=== PATIENT | male | born 1945 | race Caucasian/White ===

== ENCOUNTER 2018-10-03 14:53 | Emergency (ER) | payer MEDICARE ==
[~2018-10-03] VITALS: Ht 177.8 cm; Wt 70.0 kg
[~2018-10-03 14:53] MED LIST: ATOR40TA78 PO; GLIM2TAB2 PO; HYDR-3240 PO; LISI-167 PO; METF10002 PO; PIOG45TA4 PO; ZOLP10TA PO
[2018-10-03] MEDS ORDERED: HYDROmorphone 2 MG/ML, 1ML ONE (15:11)
[2018-10-03] MEDS ORDERED: HYDROmorphone 1 MG/ML, 1ML IVPush PRN (15:30)
[2018-10-03] MEDS ORDERED: TAMS0.4C2 PO (15:39)
[2018-10-03] MEDS ORDERED: multivitamin PO (15:39)
[2018-10-03] MEDS ORDERED: KETOROLAC 30 MG/1 ML ONE (15:58)
[2018-10-03] MEDS ORDERED: KETOROLAC 30 MG/1 ML IVPush ONE (16:00)
[2018-10-03] MEDS ORDERED: OXYcodone/APAP 10/325MG TABLET ONE (17:27)
[2018-10-03] MEDS ORDERED: OXYcodone/APAP 10/325MG TABLET PO ONE (17:30)
[2018-10-03 18:16] VITALS: BP 137/75
== END 2018-10-03 18:18 | disposition home or self-care (01) ==
LOC: ED 17:52
DX: S20.01XA Contusion of right breast, initial encounter (principal); S20.221A Contusion of right back wall of thorax, initial encounter; E78.00 Pure hypercholesterolemia, unspecified; I10 Essential (primary) hypertension; E11.9 Type 2 diabetes mellitus without complications; W11.XXXA Fall on and from ladder, initial encounter; Y93.89 Activity, other specified; Y92.89 Other specified places as the place of occurrence of the external cause; Y99.8 Other external cause status
CPT/HCPCS: 71250; 96374; 96375; 99284; J1170; J1885

== ENCOUNTER → 2020-03-29 | Outpatient (CLI) | payer MEDICARE ==
[~2020-03-29] MED LIST changes: +AMOX500T PO; +AZIT250T89 PO; +FINA5TAB4 PO; -GLIM2TAB2 PO; +GLIM2TAB7 PO; +OMNIPAQUE 350 MG/ML, 100ML BOTTLE ONE; -PIOG45TA4 PO; +PIOG45TA63 PO; +PRED20TA PO; +TAMS0.4C2 PO; +multivitamin PO
== END | disposition home or self-care (01) ==
LOC: CFH 12:41 → EDSTATUS 13:30
PROVIDERS: ATTEND Surgery
DX: K80.20 Calculus of gallbladder without cholecystitis without obstruction (principal); I71.4 Abdominal aortic aneurysm, without rupture; I70.201 Unspecified atherosclerosis of native arteries of extremities, right leg
CPT/HCPCS: 74174; 82565; Q9967

== ENCOUNTER 2020-04-08 10:56 | Emergency (ER) | payer MEDICARE ==
[~2020-04-08] VITALS: Ht 177.8 cm; Wt 74.0 kg
[~2020-04-08 10:56] MED LIST changes: -OMNIPAQUE 350 MG/ML, 100ML BOTTLE ONE
--- NOTE | 2020-04-08 11:10 | NUR ---
PT BIB [facility] WITH C/O LLQ ABD PAIN BEGINNING 729 THIS AM. PT DENIES N/V/D. NOTED REBOUND TENDERNESS. PT WITH HX AAA REPAIR A COUPLE YEARS AGO. PT DENIES CP/SOB/FEVER. PT TO CARD MONITOR, BP, CONT PULSE OX. PIV ESTABLISHED PT TO GO TO CT
[2020-04-08] MEDS ORDERED: MORPHINE SULFATE 4 MG/ML, 1ML ONE (11:25)
[2020-04-08] MEDS ORDERED: ONDANSETRON 2MG/ML, 2ML ONE (11:25)
--- NOTE | 2020-04-08 11:29 | NUR ---
PT TO CT AT THIS TIME
[2020-04-08] MEDS ORDERED: ONDANSETRON 2MG/ML, 2ML IVPush ONE (11:30)
[2020-04-08] MEDS ORDERED: PLEASE ENTER HEIGHT AND WEIGHT MC SCH (11:30)
[2020-04-08] MEDS ORDERED: SODIUM CHLORIDE 0.9% 1,000ML IVBOLUS ONE (11:30)
[2020-04-08] MEDS ORDERED: SODIUM CHLORIDE FLUSH 10ML SYR IVF ONE (11:30)
[2020-04-08] MEDS ORDERED: MORPHINE SULFATE 4 MG/ML, 1ML IVPush PRN (11:30)
--- NOTE | 2020-04-08 11:32 | NUR ---
PT STATES PAIN RELEIF NOW 10 FROM 07/22 IT WAS ON ARRIVAL, PT DECLINES MORPHINE AT THIS TIME, BP STABLE
[2020-04-08] MEDS ORDERED: OMNIPAQUE 350 MG/ML, 100ML BOTTLE ONE (11:44)
[2020-04-08 11:51] LABS: BASOPHILS # (AUTO) 0.02 x10^3/uL (0-0.1); BASOPHILS % (AUTO) 0 % (0-1); EOSINOPHILS # (AUTO) 0.02 x10^3/uL (0-0.4); EOSINOPHILS % (AUTO) 0 % (1-7); LYMPHOCYTES % (AUTO) 6 % (22-44); MD NO; MEAN CORPUSCULAR HEMOGLOBIN 32.3 pg (27.5-34.5); MEAN CORPUSCULAR HGB CONC 33.7 g/dL (33.2-36.2); MEAN CORPUSCULAR VOLUME 96.1 fL (81-97); MEAN PLATELET VOLUME 7.2 fL (7.4-10.4); MONOCYTES # (AUTO) 0.31 x10^3/uL (0.2-0.8); MONOCYTES % (AUTO) 4 % (2-9); NEUTROPHILS # (AUTO) 6.35 x10^3/uL (1.8-6.8); NEUTROPHILS % (AUTO) 89 % (42-75); PLATELET COUNT 192 x10^3/uL (130-400); RED BLOOD COUNT 4.11 x10^6/uL (4.38-5.82); RED CELL DISTRIBUTION WIDTH 13.9 % (9.4-14.8)
[2020-04-08 11:59] LABS: INTERNATIONAL NORMALIZED RATIO 1.1 (0.93-1.1); PROTHROMBIN TIME 11.7 Seconds (9.6-11.5)
[2020-04-08 12:01] LABS: ALANINE AMINOTRANSFERASE 23 U/L (12-78); ALBUMIN 2.7 g/dL (3.4-5.0); ANION GAP 6 mmol/L (5-15); CALCIUM 7.9 mg/dL (8.5-10.1); CHLORIDE 112 mmol/L (98-107); CREATININE 1.09 mg/dL (0.7-1.3)
[2020-04-08 12:05] LABS: ALKALINE PHOSPHATASE 35 U/L (45-117); BILIRUBIN,TOTAL 0.4 mg/dL (0.2-1.0); TOTAL PROTEIN 6.8 g/dL (6.4-8.2)
[2020-04-08 12:37] VITALS: BP 131/60
--- NOTE | 2020-04-08 12:38 | NUR ---
PT UNABLE TO URINATE, 2ND ATTEMPT. OK TO GIVE WATER PER ERMD
[2020-04-08 13:21] LABS: MICROSCOPIC AUTO
== END 2020-04-08 14:06 | disposition home or self-care (01) ==
LOC: ED 13:14
DX: N13.2 Hydronephrosis with renal and ureteral calculous obstruction (principal); R94.31 Abnormal electrocardiogram [ECG] [EKG]; I10 Essential (primary) hypertension; E78.5 Hyperlipidemia, unspecified; E78.00 Pure hypercholesterolemia, unspecified; E11.9 Type 2 diabetes mellitus without complications
CPT/HCPCS: 36415; 74175; 80053; 81001; 83605; 83690; 83880; 85025; 85610; 93005; 99285; J7030; Q9967

== ENCOUNTER → 2021-05-21 | Outpatient (CLI) | payer MEDICARE ==
[~2021-05-21] MED LIST changes: +HYDR-2214 PO; -HYDR-3240 PO
== END | disposition home or self-care (01) ==
LOC: ROC 08:37
PROVIDERS: ATTEND Radiology Radiation Oncology
DX: C34.11 Malignant neoplasm of upper lobe, right bronchus or lung (principal); I10 Essential (primary) hypertension; E78.5 Hyperlipidemia, unspecified; E78.00 Pure hypercholesterolemia, unspecified; E11.9 Type 2 diabetes mellitus without complications; J44.1 Chronic obstructive pulmonary disease with (acute) exacerbation; Z79.84 Long term (current) use of oral hypoglycemic drugs; Z87.891 Personal history of nicotine dependence
CPT/HCPCS: G0463

== ENCOUNTER → 2021-07-03 | Outpatient (CLI) | payer MEDICARE | END | disposition home or self-care (01) | LOC: ROC 07:37 | PROVIDERS: ATTEND Radiology Radiation Oncology | DX: Z08 Encounter for follow-up examination after completed treatment for malignant neoplasm (principal); Z85.118 Personal history of other malignant neoplasm of bronchus and lung; J44.1 Chronic obstructive pulmonary disease with (acute) exacerbation; I10 Essential (primary) hypertension; E78.5 Hyperlipidemia, unspecified; E78.00 Pure hypercholesterolemia, unspecified; E11.9 Type 2 diabetes mellitus without complications; Z87.891 Personal history of nicotine dependence; Z79.84 Long term (current) use of oral hypoglycemic drugs | CPT/HCPCS: G0463 ==